=== PATIENT | male | born 1940 | race Asian ===

== ENCOUNTER 2024-11-27 09:25 | Outpatient (AMB) | payer MEDICARE, MEDICAID, SELFPAY ==
--- NOTE | 2024-11-27 09:27 | A.OFFPC_ITS ---
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 Request Intake Note: patient here for new patient visit c/o constipation Welding Systems And Equipment Repairer Required: Yes Welding Systems And Equipment Repairer Language: Polish Welding Systems And Equipment Repairer Name: RIMA Miller Information Interpreted: non-clinical & clinical Allergies No Known Allergies Allergy (Verified 11/27/24 09:51) Medication List - Last Reconciled 11/27/24 by Maira Almaraz CNP amlodipine 5 mg PO DAILY lisinopril 30 mg PO DAILY Tobacco use date assessed: 11/27/24 Fall risk assessment: No Falls in past year Last assessed Fall Risk: 11/27/24 Dental Screening Dental Screen Date: 11/27/24 Did you have a dental visit in the last 12 months?: Yes Did you have a dental problem in the last 6 months where you did not have access to dental care?: No Was dental information given to patient?: Patient has dentist HPI HPI Comments History of Present Illness Details 84-year-old Polish speaking male, accomp anied by his female friend, presents to establish care. He admits to taking his medications as prescribed without adverse reactions. Prior PCP? - [facility] Last office visit - 07/2024 Last /CPE/labs About a year ago Acute issue(s) - None Past Medical History - Hypertension, hyperlipidemia, hypothyr oidism, bradycardia, constipation, erectile dysfunction, sensorineural hearing loss, venous retinal branch occlusion (OD) Surgical History - None Family History - None Social History - Nonsmoker. Does not vape. Does not dri nk alcohol. Denies recreational drug use - Has been making healthy dietary choice s. Exercises routinely. Generally sleep well Health maintenance - Last eye exam was earlier this month [facility]. Encourged to sign a release for his PCP to obtain his ophthalmology record - Last dental visit was earlier this wed - Last tetanus vaccine was in 02/03/2023 per old record - He he is vaccinated for shingles or pn eumonia per old record - he notes that he his up-to-date on the flu vaccine - Last colonoscopy was about 10 years ag o: normal. 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 1. Little interest or pleasure in doing things: not at all 2. Feeling down, depressed, or hopeless: not at all 3. Trouble falling or staying asleep, or sleeping too much: not at all 4. Feeling tired or having little energy: not at all 5. Poor appetite or overeating: not at all 6. Feeling bad about yourself - or that you are a failure or have let yourself or your family down: not at all 7. Trouble concentrating on things, such as reading the newspaper or watching television: not at all 8. Moving or speaking so slowly that other people could have noticed. Or the opposite - being so fidgety or restless that you have been moving around a lot more than usual: not at all 9. Thoughts that you would be better off or of hurting yourself in some way: not at all Total score: 0 Depression Screening Interpretation: Negative Depression Screening Done: Yes 31483 - PHQ-9 Billing: Yes Source: Developed by Drs. Bowen Montoya, Melanie Wiggins, Pelon Chapa and colleagues, with an educational felipa from [employer]. Thrive Questionnaire Date Thrive assessed: 11/27/24 I am a: Patient What is your living situation today?: I have a steady place to live Within the past 12 months, did the food you bought not last and you didn't have the money to get more?: Never true Within the past 12 months, did you worry whether your food would run out before you got money to buy more?: Never true Do you have trouble paying for medicines?: No Do you have trouble getting transportation to medical appointments?: No Do you have trouble paying your heating and electricity bill?: No Do you have trouble taking care of your child, family member or friend?: No Do you have trouble with day-to-day activities such as bathing, preparing meals, shopping, managing finances, etc.?: No Are you currently unemployed and looking for a job?: No Are you interested in more education?: No Please select the resources that you would like help with: None Currently or been in a relationship where the following occur: No concerns reported THRIVE Score: 0 AUDIT C Alcohol Use Questionnaire (AUDIT-C) 1. How often do you have a drink containing alcohol?: Never 3. How often do you have six or more drinks on one occasion?: Never Total Score: 0 Score Reviewed/Action Taken: Yes OLIMPIA-7 AMB Questionnaire OLIMPIA-7 Date OLIMPIA - 7 assessed: 11/27/24 Feeling nervous, anxious, or on edge: 0 = Not at all Not being able to stop or control worryin = Not at all Worrying too much about different things: 0 = Not at all Trouble relaxin = Not at all Being so restless that it is hard to sit still: 0 = Not at all Becoming easily annoyed or irritable: 0 = Not at all Feeling afraid as if something awful might happen: 0 = Not at all Total OLIMPIA-7 score (0-4 normal; 5-9 mild; 10-14 moderate; 15-21 severe): 0 Source: Developed by Drs. Bowen Montoya, Melanie Wiggins, Pelon Chapa and colleagues, with an educational felipa from [employer]. OLIMPIA-7 Assessment Billing OLIMPIA-7 Assessment Tool: OLIMPIA-7 Assessment 52317 Review of Systems Const Details: Denies chills, Denies fatigue, Denies fever(s), Denies headache(s) and Denies weakness HEENT Denies change in vision, Denies dizziness, Denies headache(s), Denies hearing loss, Denies nasal congestion, Denies sinus pain, Denies sinus pressure and Denies sore throat Card Denies chest pain, Denies lightheadedness, Denies dyspnea and Denies other (palpitations) Resp Denies cough, Denies dyspnea and Denies wheezing GI Denies abdominal pain, Denies melena, Denies hematochezia, Denies change in bowel habits, Denies dyspepsia and Denies nausea Denies hematuria and Denies dysuria Musc Denies abnormal gait, Denies myalgias, Denies arthralgias, Denies numbness and Denies tingling Skin/Breast Denies rash, Denies unusual bruising and Denies wounds Neuro Denies abnormal gait, Denies dizziness, Denies headache(s), Denies memory loss, Denies numbness, Denies Sensory deficit (Neuro), Denies tingling and Denies weakness Psych Denies anxiety, Denies depression and Denies memory loss Endo Denies cold intolerance, Denies fatigue, Denies heat intolerance, Denies polydipsia and Denies polyuria Abhay/Lymph Denies easy bleeding and Denies easy bruising Aller/Immun Denies wheezing Physical exam (Primary Care) Vital Signs: Last Vital Signs Temp 97.8 F 11/27/24 09:46 Pulse 53 11/27/24 09:46 Resp 16 11/27/24 09:46 BP 132/60 11/27/24 09:46 Pulse Ox 100 11/27/24 09:46 Oxygen Delivery Method Room Air 11/27/24 09:46 BMI result Body Mass Index 23.6 Tobacco/Smoking Status: Tobacco use Status Tobacco use date assessed 11/27/24 11/27/24 09:45 Patient Tobacco Use Status Never used Tobacco 11/27/24 09:46 e-Cigarette/Vaping Use Never Used 11/27/24 09:46 PHQ-9: PHQ-9 Score PHQ-9: Total score 0 11/27/24 09:53 Depression Screening Interpretation: Negative Thrive Assessment: Date of Thrive Assessment Date Thrive assessed 11/27/24 11/27/24 09:56 Currently or been in a relationship where the following occur: No concerns reported Const Other: General: no acute distress, well developed, alert and awake Nutritional Appearance: well nourished Orientation/consciousness: patient oriented x3 HENMT Head: Yes normocephalic and Yes atraumatic Ears: hearing grossly normal bilaterally and TM's normal bilaterally General nose exam: Normal external nose present and Normal nares present Mouth: Normal oral and palatal mucosa present and moist mucous membranes Teeth and gingiva: dentition normal Throat: Yes oropharynx normal Eyes Pupils: Equal, round and reactive pupils present and Pupil accommodation reflex normal EOM: EOMs intact bilaterally Neck Neck: Yes normal visual inspection, Yes no lymphadenopathy and Yes trachea midline Thyroid: Thyroid normal Carotids: no bruits Lymphatic: no lymphadenopathy noted Chest Chest palpation & inspection: normal inspection of the chest Resp Effort & Inspection: normal respiratory effort Auscultation: clear to auscultation bilaterally Cardio Rate: regular rate Rhythm: regular rhythm Heart sounds: S1 normal heart sound present, S2 normal heart sound present, no gallops, no murmurs and no rubs Bruits: no abdominal aortic bruits and no carotid bruits GI Palpation (GI): No Abdominal aortic bruit present, Soft to palpation, nontender, No hepatosplenomegaly present and No Rebound tenderness present Auscultation: normal bowel sounds General: Yes no CVA tenderness Back/Spine/Pelvis Back: no CVA tenderness Cervical Spine: cervical ROM normal and No Cervical spine tenderness Thoracic/Lumbar Spine: thoraco-lumbar ROM normal, No pain with thoraco-lumbar ROM, No thoracic spinal tenderness and No lumbar spinal tenderness Skin General: warm and dry. Normal skin color. Normal skin turgor Lesions: no lesions Rashes: no rashes Trauma: no lacerations or abrasions Wounds: no wounds Nails: normal Neuro General: patient oriented x3, gait normal and CN's II-XI intact bilaterally Cranial nerves: Yes Equal, round and reactive pupils present Cognition (Neuro): normal cognition Gait exam (Neuro): Normal gait present Motor exam (neuro): 5/5 motor strength present throughout Sensory Exam: No Sensory deficit (Neuro) Deep tendon reflexes (DTR's): Right patellar reflex intensity grade: 2+ and Left patellar reflex intensity grade: 2+ Extrem General: Yes normal to inspection, No edema and No calf tenderness Psych Appearance: grossly normal Affect: normal affect Attitude: cooperative Thought process: Normal thought process present Coding Level of Care Code New Pt Prev Care >65yr (62124) Diagnoses Normal physical examination, routine Z00.00 Hypertension I10 Laboratory tests ordered as part of a complete physical exam (CPE) Z00.00 Additional Codes PHQ-9 - 95913 - PHQ-9 Billing: Yes ([id number]) OLIMPIA-7 Assessment Billing - OLIMPIA-7 Assessment Tool: OLIMPIA-7 Assessment 51765 ([id number]) Assessment & Plan Assessment & Plan (1) Normal physical examination, routine: Code(s): Z00.00 - Encounter for general adult medical examination without abnormal findings Category: Medical Plan: No functional limitation noted. Continue current treatment regimen. Healthy diet and routine exercise encouraged. Perform lab work and follow-up in 1 month for hypertension and labs reviewed. Return sooner with symptoms or concerns. Verbalized understanding and agreed with the plan. (2) Hypertension: Code(s): I10 - Essential (primary) hypertension Category: Medical Plan: Blood pressure today is 132/60, within goal of less than 140/90. Continue current treatment regimen. Low-sodium diet encouraged. Follow-up in 1 month Verbalized understanding and agreed with plan. (3) Laboratory tests ordered as part of a complete physical exam (CPE): Code(s): Z00.00 - Encounter for general adult medical examination without abnormal findings Category: Medical Plan: Fasting labs ordered as part of a complete physical exam. Advised to fast for at least 10 hours before getting labs drawn. May drink water Verbalized understanding and agreed with treatment plan. Orders: Orders Lipid Panel Today Z00.00 - Encounter for general adult medical examination without abnormal findings Microalbumin, Random (w Creat) Today Z00.00 - Encounter for general adult medical examination without abnormal findings PSA, Ultra Sensitive Today Z00.00 - Encounter for general adult medical examination without abnormal findings Complete Blood Count Auto Diff Today Z00.00 - Encounter for general adult medical examination without abnormal findings Comprehensive [place]. Panel Fast Today Z00.00 - Encounter for general adult medical examination without abnormal findings TSH reflex Free T4 Today Z00.00 - Encounter for general adult medical ex amination without abnormal findings UA CC w/rflx Micro + Cult Today Z00.00 - Encounter for general adult medical examination without abnormal findings Vitamin D 25-OH Total Today Z00.00 - Encounter for general adult medical examination without abnormal findings
[2024-11-27 09:46] VITALS: BP 132/60; PULSE 53; RESP 16; TEMP 36.6; O2SAT 100; BMI 23.6
--- OUTSIDE RECORDS SUMMARY | 2024-11-27 10:13 | XMS_ITS | Clinical Summary ---
Author Organization [facility] Address [address] [place] [id number] Phone Care Team Providers Care Skin Pass Operator Name Role Phone Americo Ayala MD Primary Care Provider Allergies No known active allergies Medications lisinopril (PRINIVIL,ZESTR IL) 5 MG tablet Orally daily A ctive Medication-Free Text multivitamin Active Active Problems Problem Noted Date Diagnosed Date SSS (sick sinus syndrome) 07/27/2017 Overview (07/27/2017): characterized as longstanding asymptomatic sinus bradycardia Assessment & Plan (07/27/2017 10:28 AM EDT): EKG today showing sinus bradycardia with a heart rate of 50 bpm with IVCD, and NSSTW. He is asymptomatic. --We will continue to monitor, he will follow-up in one year and we will transition care over to Dr. Del Cid --Patient will call with any symptoms, issues, or concerns Essential hypertension 07/27/2017 Assessment & Plan (07/27/2017 10:28 AM EDT): Blood pressure in the office today was 160/80 with repeat bp 160/66. Long-term management by PCP he is currently on lisinopril 5 mg by mouth daily. He tells me that he was recently seen by his primary care physician and and he did not adjust his medications. Recommend increase in his VIRAL inhibitor for better blood pressure control. He would rather discuss this with his primary care physician prior to taking any medications. --Avoid any medications that may influence his heart rate including beta blockers and see him antagonists. Social History Tobacco Use Types Packs/Day Years Used Date Smoking Tobacco: Former Smokeless Tobacco: Never Alcohol Use Standard Drinks/Week Comments No 0 (1 standard drink = 0.6 oz pur e alcohol) Education Answer Date Recorded Are you interested in more education? Not on dc e 08/28/2022 Are you concerned about learning? Not on file 08/28/2022 No 08/28/2022 No 08/28/2022 Digital Access Answer Date Recorded No 09/26/2022 No 09/26/2022 Reliable internet access at home? Not on file 09/26/2022 Device with a working camera? Not on file Sex and Gender Information Value Date Recorded Sex Assigned at Not on file Legal Sex Male 10:11 PM EDT Gender Identity Not on file Sexual Orientation Not on file Last Filed Vital Signs Vital Sign Reading Time Taken Comments Blood Pressure 180/82 07/25/2018 11:24 AM EDT Pulse 44 07/25/2018 11:24 AM EDT Temperature - - Respiratory Rate - - Oxygen Saturation 98% 07/25/2018 11:24 AM EDT Inhaled Oxygen Concentration - - Weight 64.5 kg (142 lb 1.6 oz) 07/25/2018 11:24 AM EDT Height 165.1 cm (5' 5 ) 07/27/2017 10:01 AM EDT Body Mass Index 23.65 07/27/2017 10:01 AM EDT Plan of Treatment Health Maintenance Due Date Last Done Comments BLOOD PRESSURE 1941 CREATININE LEVEL 1941 POTASSIUM LEVEL 1941 DEPRESSION SCREENING 1953 ZOSTER VACCINES (2 of 3) 01/18/2014 11/23/2013 RSV VACCINE (1 - 1-dose 75+ series) 2016 COVID-19 VACCINE (2023-2 5 season) 2024 07/09/2020, 06/17/2020 Adult Td,Tdap Booster 07/17/2026 07/17/2016 , 11/29/2007 PNEUMOCOCCAL VACCINES (50+ years) Completed 10/19/2014, 11/29/2007 HEPATITIS A VACCINES Aged Out No long er eligible based on patient's age to complete this topic HIB VACCINES Aged Out No longer eligi ble based on patient's age to complete this topic MENINGOCOCCAL VACCINES (ACWY) Aged Out No longer eligible based on patient's age to complete this topic MENINGOCOCCAL VACCINES (B) Aged Out N o longer eligible based on patient's age to complete this topic Medical Devices Not on file Insurance MEDICARE PART A & B [address] [place], [place] [address]HEALTH MEDICARE PART A & [facility]IC[facility] PART A & [place] [facility] [place] A & B HEALTH MEDICARE PART A & [place] A & [facility] Care Teams Skin Pass Operator Relationship Specialty Start Date End Date Americo Ayala MD [address] [place], [place] [id number] [place] [phone] PCP - General 02/18/17 Additional Source Comments The information contained in this document represents components of the legal health record. It is not the complete legal health record.[facility]
--- OUTSIDE RECORDS SUMMARY | 2024-11-27 10:13 | XMS_ITS | Data Portability ---
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 HIPPA Release form signed today. [email or web address] Not available 03/17/2021 12:09:07 Plan of Treatment Reminders Order Date Submit Date Provider Last Modified By Organization Details Last Modified Time Details Appointments None recorded. Lab None recorded. Referral senior materials planner referral - Right sensorineur al hearing loss. Please evaluate for audiogram. 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 ispilateral optic nerve has large cupping and optociliary shunt vessels. ? glaucoma vs. changes from old BRVO. Also small embolus in temporal retina OS. Cataracts OU. 2020 [email or web address] Not available 10:29:46 field education director referral 2020 [facility], [address] [place] [address], [phone], 11:55:04 Procedures None recorded. Surgeries None recorded. Imaging None recorded. Medication Orders lisinopril 20 mg tablet 2020 BRITTON Not available 11:26:07 hydrochloro thiazide 25 mg tablet 2020 BRITTON Not available 11:26:07 hydrochloro thiazide 25 mg tablet 2020 BRITTON Not available 10:46:52 senna 8.6 mg tablet 2020 BRITTON Not available 15:38:57 Patient TargetsNo targets recorded. Patient Instructions Encounter Date Encounter Id Patient Instructions Last Modified By Organization Details Last Modified Time 11/18/2020 [id number] After a discussi on of treatment options, which included consideration of best practices and patient preferences, the above treatment plan and objectives were adopted. New medication was discussed with patient including risks, benefits, possible and expected side effects. Patient understands and is willing to begin medication as prescribed. [email or web address] Not available 11/18/2020 21:17:24 12/16/2020 [id number] After a discussi on of treatment options, which included consideration of best practices and patient preferences, the above treatment plan and objectives were adopted. [email or web address] Not available 12/24/2020 19:05:54 03/05/2021 [id number] After a discussi on of treatment options, which included consideration of best practices and patient preferences, the above treatment plan and objectives were adopted. [email or web address] Not available 03/08/2021 17:35:27 03/17/2021 [id number] After a discussi on of treatment options, which included consideration of best practices and patient preferences, the above treatment plan and objectives were adopted. 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 ispilateral optic nerve has large cupping and optociliary shunt vessels. ? glaucoma vs. changes from old BRVO. Also small embolus in temporal retina OS. Cataracts OU. Referring Physician: Missy Asher, Optometry, Encounter Date: 01/03/2021 Fat Pressroom Worker Referral for Hea ring loss Right sensorineural hearing loss. Please evaluate for audiogram. Referring Physician: Americo Ayala [facility], Encounter Date: 03/05/2021 Problems Name Problem SNOMED Code Status Onset Date Resolution Date Notes Provider Name and Address Organization Details Recorded Time Essential hypertension 45344630 Active Americo Ayala MD [address] [place], [place] [address], [address], [facility] 5 20:11:43 Impotence Active Americo Ayala MD [address] [place], [place] [address], [address], [facility] 4 12:13:33 Bradycardia 90273298 Active 2015 Americo Ayala MD [address] [place], [place] [address], [address], [facility] 6 11:37:13 Venous retinal branch occlusion 99458746 Active 2018 Americo Ayala MD [address] [place], [place] [address], [address], [facility] 9 17:43:18 Problem Notes None recorded. Procedures Surgical History Date Name Laterality Status Provider Name and Address Organization Details Recorded Time 01/04/20 21 Fundus Photography completed Missy Asher, OD [address] [place] [address], [phone], [facility] 01/03/2021 19:19:03 01/04/20 21 Refraction completed Brenda Swift [facility] 01/02/2021 21:29:32 10/21/20 20 Telephonic Visit completed Buffy Esparza LPN [facility] 02/21/2020 12:03:18 03/06/20 19 Fundus Photography completed Missy Asher, OD [address] [place], [address], [facility] 03/06/2019 13:59:49 03/06/20 19 Refraction completed Missy Asher, OD [address] [place], [address], [facility] 03/06/2019 14:08:16 02/05/20 18 Medicare Wellness Visit completed Soniya Moyer [facility] 02/04/2018 09:16:55 03/02/20 17 Refraction completed Smiley Cordova [facility] 03/02/2017 08:56:04 07/18/19 17 Medicare Wellness Visit completed Roseline Mckeon [facility] 07/17/2016 10:02:28 02/26/20 16 Refraction completed Missy Asher, OD [address] [place], [address], [facility] 02/26/2016 14:32:32 04/29/20 15 Medicare Wellness Visit completed Montserrat Garcia [facility] 04/29/2015 14:39:20 04/23/20 14 Medicare Wellness Visit completed Dayanara Fishman [facility] 04/23/2014 11:14:32 Imaging Results None recorded. Procedure Notes None recorded. Medical Equipment None Reported. Allergies No known drug allergies Medications Name Sig Start Date Stop Date Status Note LastModified by Organization Details LastModified Time ibuprofen 800 mg tablet 08/10 completed Not Available Not Available Not Available clarithromy mateo 500 mg tablet Take 1 tablet every 12 hours by oral route for 14 days. 08/10 completed Not Available Not Available Not Available senna 8.6 mg tablet Take 2 tablets every day by oral route as needed. 2020 active Not Available Not Available Not Avai lable lisinopril 20 mg tablet Take 1 tablet every day by oral route. active Not Available Not Available No t Available triamcinolo ne acetonide 0.1 % topical cream APPLY A THIN LAYER TO THE AFFECTED AREA(S) BY TOPICAL ROUTE 2 TIMES PER DAY FOR 1 WEEK 02/04 completed Not Available Not Available Not Available amoxicillin 500 mg tablet Take 2 tablets twice a day by oral route for 14 days. 08/10 completed Not Available Not Available Not Available Zantac 150 mg tablet Take 1 tablet every day by oral route. 08/10 completed Not Available Not Available Not Available lisinopril 10 mg tablet Take 1 tablet every day by oral route. 02/15 completed Not Available Not Available Not Available lisinopril 30 mg tablet TAKE ONE TABLET BY MOUTH EVERY DAY active Not Available Not Available No t Available omeprazole 20 mg capsule,del ayed release TAKE ONE CAPSULE BY MOUTH TWICE DAILY 08/10 completed Not Available Not Available Not Available lisinopril 5 mg tablet TAKE 1 TABLET BY MOUTH EVERY DAY active Not Available Not Available No t Available hydrochloro thiazide 25 mg tablet Take 1 tablet every day by oral route. 2020 active Not Available Not Available Not Avai lable Viagra 100 mg tablet TAKE 1/4 TO 1/2 TABLET BY MOUTH 1 HOUR PRIOR TO SEXUAL INTERCOUR SE NEEDED. 02/23 completed Not Available Not Available Not Available lisinopril 2.5 mg tablet active Not Available Not Available Not Available metronidazo le 0.75 % topical gel APPLY A THIN LAYER TO THE AFFECTED AREA(S) BY TOPICAL ROUTE AT NIGHT (TO FACE) 03/17 completed Not Available Not Available Not Available doxycycline hyclate 100 mg tablet 02/01 completed Not Available Not Available Not Available Fluzone High-Dose 6438-3408 (PF) 180 mcg/0.5 mL intramuscul ar syringe active Not Available Not Available N ot Available Shingrix (PF) 50 mcg/0.5 mL intramuscul ar suspension, kit 02/01 completed Not Available Not Available Not Available Vitals Date Recorded Body height Body mass index (BMI) Body weight Systolic And Diastolic Provider Name and Address Organization Details Last Updated DateTime 11/18/2020 161.8 cm 24.6 kg/m2 14191.82 g 142/50 mm[Hg] Buffy Esparza LPN [facility] 11/18/2020 15:22:54 Date Recorded Body height Body mass index (BMI) Body weight Heart rate Systolic And Diastolic Provider Name and Address Organization Details Last Updated DateTime 12/16/2020 161.8 cm 24.5 kg/m2 50202.22 g 44 /min 134/58 mm[Hg] Barbara FELICE Kumar [facility] 12/16/2020 09:58:49 Date Recorded Body height Body mass index (BMI) Body weight Systolic And Diastolic Provider Name and Address Organization Details Last Updated DateTime 03/05/2021 161.8 cm 24.8 kg/m2 89620.41 g 172/62 mm[Hg] Buffy Esparza LPN [facility] 03/05/2021 10:02:37 Date Recorded Body height Body mass index (BMI) Body weight Systolic And Diastolic Provider Name and Address Organization Details Last Updated DateTime 03/17/2021 161.8 cm 24.5 kg/m2 84032.92 g 144/56 mm[Hg] Buffy Esparza [facility] 03/17/2021 11:00:37 Social History Question Answer Notes LastModified by Sanl[employer] Details LastModified Time Tobacco Smoking Status Never Smoker Barbara StacyFELICE [facility] 12/16/2020 09:56:59 How Much Tobacco Do You Chew? None [email or web address] Information not available 07/17/2016 How Many Days In The Past Year Have You Had A Heavy Drinking Consumption (4+ Female, 5+ Male)? 0 Information no t available 04/23/2014 Live Alone Or With Others? Alone Information not available 04/23/2014 Marital Status Single Informatio n not available 04/23/2014 What Was The Date Of Your Most Recent Tobacco Screening? 03/05/2021 [email or web address] Information not available 03/05/2021 How Many Children Do You Have? 2 Information not available 04/23/2014 Seat Belts Used Routinely Yes Information not available 04/23/2014 Are You Sexually Active? Yes Information not available 04/23/2014 Sex: Unknown Functional Status Question Answer Note LastModified by Organizat ion Details LastModified Time Do you use any illicit or recreational drugs? No blepage Information not available 12/16/2020 What is your level of alcohol consumption? None [email or web address] Information not available 03/02/2014 Do you or have you ever used smokeless tobacco? Never used smokeless tobacco [email or web address] Information not available 02/21/2020 Do you or have you ever used e-cigarettes or vape? Never used electronic cigarettes [email or web address] Information not available 02/21/2020 Mental Status None recorded. Family History Relationship Description Onset Age of this Age Resolved Age Notes LastModified by Organization Details LastModified Time Sister Malignant tumor of stomach 60 fkim Not available 2013 11:38:36 Medical History No medical history recorded. Immunizations Vaccine Type Date Status Note Provider Nam e and Address Organization Details Recorded Time Influenza, high-dose, trivalent, PF 4 completed Not Available [facility] 05/20/2019 02:19:19 Pneumococcal conjugate PCV 13 5 completed Not Available [facility] 05/20/2019 02:19:27 Influenza, high-dose, trivalent, PF 5 completed Not Available [facility] 05/20/2019 02:25:04 Influenza, high-dose, trivalent, PF 6 completed Not Available [facility] 05/20/2019 02:20:42 Td (adult), 2 Lf tetanus toxoid, preservative free, adsorbed 7 completed Not Available [facility] 05/20/2019 02:38:50 Influenza, high-dose, trivalent, PF 7 completed Not Available [facility] 05/20/2019 02:22:00 zoster live 4 completed FELICE Gonzalez [facility] 06/13/2014 11:10:03 Td (adult) 8 completed FELICE Gonzalez [facility] 06/13/2014 11:10:03 pneumococcal polysaccharide PPV23 8 completed FELICE Gonzalez [facility] 06/13/2014 11:10:03 Influenza, high-dose, trivalent, PF 8 completed Not Available [facility] 05/20/2019 02:29:52 Influenza, high-dose, trivalent, PF 9 completed Not Available [facility] 05/20/2019 02:24:02 Influenza, high-dose, quadrivalent, PF 1 [facility] 10:11:31 Influenza, split virus, quadrivalent, preservative 0 completed Americo Ayala MD [address] [place], [address], [facility] 02/24/2020 09:23:37 SARS-COV-2 (COVID-19) vaccine, UNSPECIFIED 1 completed Americo Ayala MD [address] [place], [address], [facility] 11/18/2020 15:39:47 SARS-COV-2 (COVID-19) vaccine, UNSPECIFIED 1 completed Americo Ayala MD [address] [place] [address], [address], [facility] 11/18/2020 15:39:55 zoster recombinant 9 completed MELANY Hanley, [facility] 03/10/2021 08:26:36 zoster recombinant 9 completed MELANY Hanley, [facility] 03/10/2021 08:26:59 Past Encounters Encounter ID Performer Location Encounter Start Date Encounter Closed Date Diagnosis/Indication Diagnosis SNOMED-CT Code Diagnosis ICD10 Code Diagnosis Note [id number] Americo Ayala MD , [facility], [address] [place] [address] 03/02/2014 14:47:12 03/02/2014 16:56:27 Essential hypertension 71790510 BP optimal. Continue with current medication and low salt diet. EKG without evidence of ischemia. Impotence 576164927 Safe sex discussed. Benefits and potential adverse effects of the medication discussed. Influenza vaccine needed [id number] 106 Bradycardia 18044220 Pat ient with bradycardi a. Distant history of dizziness, but no current dizziness or lightheade dness. Advised to monitor for any new symptoms. Discussed about potential adverse effects of Viagra. [id number] Americo Ayala MD , [facility], [address] [place] [address] 04/23/2014 09:46:54 04/23/2014 11:44:14 Adult health examination 789564598 See Risk Assessment and Lifestyle Change Counseling section above. Signed a release from [facility] ([facility]). Colonoscop y UTD 2-3 years ago. Was informed normal. Influenza vaccine UTD. Believes all other vaccines are UTD. Records requested. Home/vehic le/sexual safety reviewed. Counseling [id number] Bradycardia 70626107 Pat ient with bradycardi a. Distant history of dizziness, but no current dizziness or lightheade dness. Advised to monitor for any new symptoms. Discussed about potential adverse effects of Viagra. Essential hypertension 14247714 BP elevated today, but within normal at his last visit and at home. Advised to bring in his home machine for calibratio n. Continue with current medication and low salt diet. Previous EKG without evidence of ischemia. [id number] Americo Ayala MD , [facility], [address] [place] [address] 10/19/2014 09:40:05 10/19/2014 10:08:52 Benign essential hypertension 7711537 Blood pressure at goal. Home BP 130/70. Advised to bring in his home machine for calibratio n. Continue with current medication and low salt diet. Previous EKG without evidence of ischemia. Bradycardia 24170029 Pat ient with bradycardi a. Distant history of dizziness, but no current dizziness or lightheade dness. Advised to monitor for any new symptoms. Discussed about potential adverse effects of Viagra. Contact dermatitis 64426728 Suspect poison tanja. Small confluence of erythemato us papules on his right medial knee. Will treat with a topical cream. Active or passive immunization 850229934 [id number] Wyatt Ramirez MD , [facility], [address] [place] [address] 03/06/2015 07:03:42 03/06/2015 16:10:57 Active or passive immunization 698153179 Z23 [id number] Americo Ayala MD , [facility], [address] [place] [address] 04/29/2015 14:33:31 04/29/2015 15:28:14 Adult health examination 207525800 Z00.00 See Risk Assessment and Lifestyle Change Counseling section above. Signed a release from [facility] ([facility]). Colonoscop y UTD 4 years ago. Was informed normal. Influenza vaccine UTD. Believes all other vaccines are UTD. Records requested. Home/vehic le/sexual safety reviewed. Counseling 175582132 Z71 .9 Essential hypertension 85544252 I10 BP within normal today. Continue with current medication and low salt diet. Previous EKG without evidence of ischemia. [id number] Americo Ayala MD , [facility], [address] [place] [address] 01/10/2016 11:05:05 01/10/2016 11:47:17 Essential hypertension 92414190 I10 Reports home BP within normal. Continue with Lisinopril and low salt diet. Active or passive immunization 592185829 Z23 Bradycardia 08992076 R00 .1 Patient with bradycardi a. Denies CP/SOB. Recently started with occasional dizziness and nausea (once or twice a year). Never had syncope or MS change. Will refer to Cardiology for further evaluation . Advised to monitor for any new symptoms. Discussed about potential adverse effects of Viagra (advised to hold off Viagra until seen by Cardiology ). [id number] Americo Ayala MD , [facility], [address] [place] [address] 02/24/2016 11:34:17 02/24/2016 14:23:53 Visual impairment 195995026 H54.7 Patient with decreased visual acuity on his left side since 2 weeks ago. Reports acute onset. Denies eye pain or itching. Underlying HTN, but BP well controlled . Also with bradycardi a, currently non-sympto matic. Will set up an appointmen t with Optometry today for further evaluation . Essential hypertension 32699932 I10 Reports home BP within normal. Continue with Lisinopril and low salt diet. Bradycardia 77486543 R00 .1 Patient with bradycardi a. Denies CP/SOB. Never had syncope or MS change. Evaluated by Cardiology . No current indication for pacemaker. Discussed about potential adverse effects of Viagra (advised to discontinu e). [id number] Missy Asher OD [facility], [facility] [address] [place] [address] 02/24/2016 14:24:04 02/24/2016 16:08:20 Internal hordeolum 282693700 H00.025 c/w discharge 2 weeks ago. non-tender , pt ed, recommend hot compress 10 min 4 x day for 1 week or until resolves. rtc if gets pain, worsening vision, or swelling. 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 c/w blurry vision. pt ed on cataracts. recommend coming back for refraction before deciding if needs cataract surgery consult. pt okay with this plan. [id number] Missy Asher, OD [facility], [facility] [address] [place] [address] 02/26/2016 11:22:45 02/26/2016 12:38:12 Presbyopia 78206373 H52.4 [id number] Americo Ayala MD , [facility], [address] [place] [address] 07/17/2016 09:55:09 07/17/2016 10:37:04 Adult health examination 472105045 Z00.00 See Risk Assessment and Lifestyle Change Counseling section above. Colonoscop y UTD. Influenza vaccine UTD. Will administer Td vaccine today. Home/vehic le/sexual safety reviewed. Counseling 165376335 Z71 .9 Essential hypertension 24709400 I10 Reports home BP within normal. Continue with Lisinopril and low salt diet. Bradycardia 42773135 R00 .1 Patient with bradycardi a. Denies CP/SOB. Never had syncope or MS change. Evaluated by Dr. Malave (Cardiolog y). Diagnosed with asymptomat ic sick sinus syndrome. No pacemaker indicated at this time. TSH within normal. Will monitor clinically . Avoiding PDE-5 inhibitor. Advised to monitor for any new symptoms. Active or passive immunization 921633781 Z23 [id number] Americo Ayala MD , [facility], [address] [place] [address] 01/18/2017 10:29:25 01/18/2017 11:00:25 Essential hypertension 85122093 I10 Reports home BP within normal. Continue with Lisinopril and low salt diet. Bradycardia 08847856 R00 .1 Patient with bradycardi a. Denies CP/SOB. Never had syncope or MS change. Evaluated by Dr. Malave (Cardiolog y). Diagnosed with asymptomat ic sick sinus syndrome. No pacemaker indicated at this time. TSH within normal. Will monitor clinically . Avoiding PDE-5 inhibitor. Advised to monitor for any new symptoms. Active or passive immunization 810606165 Z23 [id number] Missy Asher, OD [facility], [facility] [address] [place] [address] 03/02/2017 08:27:49 03/02/2017 09:37:04 Cortical senile cataract 41810150 H25.013 mild to moderate OU. pt ed, not visually significan t. monitor 1 yr CEE or prn. Presbyopia 06514339 H52. 4 Rx fairly stable, no need to change glasses. [id number] Americo Ayala MD FP, [facility], [address] [place] [address] 02/04/2018 09:04:55 02/04/2018 09:46:35 Adult health examination 797753337 Z00.00 See Risk Assessment and Lifestyle Change Counseling section above. Colonoscop y UTD. Influenza vaccine administer ed today. Td vaccine UTD. Home/vehic le/sexual safety reviewed. Counseling 152379789 Z71 .9 Depression screening 171 058241 Z13.89 depression screening tool administer ed, entered into emr, scored and discussed, time greater than 7.5 minutes Essential hypertension 75511324 I10 Reports home BP within normal. Continue with Lisinopril and low salt diet. Bradycardia 94363789 R00 .1 Patient with bradycardi a. Denies CP/SOB. Never had syncope or MS change. Evaluated by Dr. Malave (Cardiolog y). Diagnosed with asymptomat ic sick sinus syndrome. No pacemaker indicated at this time. TSH within normal. Will monitor clinically . Avoiding PDE-5 inhibitor. Advised to monitor for any new symptoms. Rosacea 229661074 L71.9 Involving bilateral cheeks, nose and forehead. Discussed about trial of Metronidaz ole gel. Advised to contact if no improvemen t. Gastritis 6560917 K29.70 Long history of intermitte nt gastritis symptoms. Denies BRBPR or melena. Frequent use of Zantac OTC. Will prescribe. From [place]. Will check Stool H. pylori Ag. Will do triple therapy if positive. Understand s the plan. Active or passive immunization 526613835 Z23 [id number] Missy Asher, OD [facility], [facility] [address] [place] [address] 03/03/2018 08:28:24 03/03/2018 09:39:10 Cortical senile cataract 05063685 H25.013 mild OU. pt ed, not visually significan t. monitor 1 yr CEE or prn. Presbyopia 61476681 H52. 4 continue with current glasses. copy of rx given. [id number] Americo Ayala MD , [facility], [address] [place] [address] 08/10/2018 14:39:34 08/11/2018 08:58:49 Essential hypertension 53841480 I10 Reports home BP within normal. Continue with Lisinopril and low salt diet. Bradycardia 57526643 R00 .1 Patient with bradycardi a. Denies CP/SOB. Never had syncope or MS change. Evaluated by Dr. Malave (Cardiolog y). Diagnosed with asymptomat ic sick sinus syndrome. No pacemaker indicated at this time. TSH within normal. Will monitor clinically . Avoiding PDE-5 inhibitor. Advised to monitor for any new symptoms. Rosacea 482283083 L71.9 Involving bilateral cheeks, nose and forehead. Discussed about trial of Metronidaz ole gel. Advised to contact if no improvemen t. Gastritis 4411166 K29.70 Long history of intermitte nt gastritis symptoms. Denies BRBPR or melena. Frequent use of Zantac OTC. Previously found to have H. pylori Ag. Marked improvemen t after the triple therapy. Active or passive immunization 494836721 Z23 [id number] Missy Asher, [facility], [facility] [address] [place] [address] 03/06/2019 11:03:51 03/06/2019 13:07:31 Cortical senile cataract 13308708 H25.013 mild OU. pt ed, not visually significan t. monitor 1 yr CEE or prn. Presbyopia [id number] H52. 4 copy of glasses rx given to patient. Venous ret inal branch occlusion 27690985 H34.8322 new BRVO without macular edema. PCP, Dr. Ayala, aware of findings. BP taken by nurse Hazle today was 170/76 on the left arm. I spoke to Dr. Ayala today. He will follow-up with the patient. I also referred to patient to see the retina specialist within a couple of weeks. [id number] Americo Ayala MD , [facility], [address] [place] [address] 03/17/2019 11:11:41 03/17/2019 11:59:51 Active or passive immunization [id number] Z23 Essential hypertension 49749347 I10 Recently had elevated BP. No change in treatment. BP within normal currently. Continue with Lisinopril and low salt diet. Bradycardia 47067049 R00 .1 Patient with bradycardi a. Denies CP/SOB. Never had syncope or MS change. Evaluated by Dr. Malave (Cardiolog y). Diagnosed with asymptomat ic sick sinus syndrome. No pacemaker indicated at this time. TSH within normal. Will monitor clinically . Avoiding PDE-5 inhibitor. Advised to monitor for any new symptoms. Rosacea [id number] L71.9 Involving bilateral cheeks, nose and forehead. Continue with Metronidaz ole gel. Gastritis 9281823 K29.70 Long history of intermitte nt gastritis symptoms. Denies BRBPR or melena. Frequent use of Zantac OTC. Previously found to have H. pylori Ag. Marked improvemen t after the triple therapy. 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 BP at the visit 176/70. Now better. No change in vision. Just saw Dr. Liu at [facility] yesterday. No issues with vision. Recommende d monitoring without interventi on. [id number] MD SONYA Vasquez, [facility], [address] [place] [address] 01/22/2020 11:49:03 01/23/2020 09:27:45 Essential hypertension 45734852 I10 Borderline elevated home BP 140-145/70 . Will further increase Lisinopril dose to 10mg daily. Monitor BP at home. Continue with lifestyle modificati on with low salt diet and exercise. Hearing loss 97750355 H9 1.91 Brief loss of right ear hearing and tinnitus 2-3 days. Now back at his baseline. Previously had similar symptoms with negative work up by ENT. Discussed audiologic evaluation if recurs. Follow up in 6 month. [id number] Americo Ayala MD , [facility], [address] [place] [address] 02/02/2020 08:11:29 02/05/2020 10:37:12 Essential hypertension 61443734 I10 Previously had borderline elevated BP. Increased Lisinopril dose to 10mg daily 10 days ago. States today's BP 130/70. Monitor BP at home. Continue with lifestyle modificati on with low salt diet and exercise. Will follow up VV in 1 month Bradycardia 96808481 R00 .1 Patient with underlying bradycardi a. Denies CP/SOB. Never had syncope or MS change. Evaluated by Dr. Malave (Cardiolog y). Diagnosed with asymptomat ic sick sinus syndrome. No pacemaker indicated at this time. TSH within normal previously . Will monitor clinically . Avoiding PDE-5 inhibitor. Advised to monitor for any new symptoms. Dizziness [id number] R42 Recent ER visit. Symptoms getting better. No URI symptoms. Informed possible link to his underlying bradycardi a. Advised on ample hydration. Advised to contact the clinic if persistent symptoms. [id number] Americo Ayala MD , [facility], [address] [place] [address] 02/21/2020 12:00:41 02/23/2020 10:03:46 Essential hypertension 15799473 I10 Follow up after [facility] ER visit due elevated BP and dizziness. Labs overall unremarkab le. BP in the ER was 180/70-80. Recently increased Lisinopril dose and added HCTZ. Reports home BP better now at 135/60 and 100/64 (with HR 50-60), but has had labile BP. Previously scheduled for an in-person visit this Wednesday. Intends to keep the appointmen t to check BP and compare with his home machine. Spoke to patient. No LOTT or CP. Will also get his Flu vaccine at the visit. Continue with lifestyle modificati on with low salt diet and exercise. Continue with HCTZ 25mg and Lisinopril 20mg daily. [id number] Americo Ayala MD , [facility], [address] [place] [address] 02/23/2020 14:16:41 02/27/2020 15:59:40 Essential hypertension 75745601 I10 Follow up after [facility] ER visit due elevated BP and dizziness. Labs overall unremarkab le. BP in the ER was 180/70-80. Recently increased Lisinopril dose and added HCTZ. Reports home BP better now at 135/60 and 100/64 (with HR 50-60), but has had labile BP. No LOTT or CP. Today's BP by this provider were 122/58 and 122/56. However, his [employer] BP machine measured 148/80 & 150/71 at the same time. Will schedule another in-person visit in 3-4 months per request. Advised to contact the [facility] for his just purchased BP machine. Continue with lifestyle modificati on with low salt diet and exercise. Continue with HCTZ 25mg and Lisinopril 20mg daily. [id number] Americo Ayala MD , [facility], [address] [place] [address] 05/10/2020 14:50:16 05/13/2020 08:56:39 Essential hypertension 81961072 I10 Follow up after [facility] ER visit due elevated BP and dizziness. Labs overall unremarkab le. BP in the ER was 180/70-80. Recently increased Lisinopril dose and added HCTZ. Reports home BP better now at 135/60 and 100/64 (with HR 50-60). No LOTT or CP. Continue with lifestyle modificati on with low salt diet and exercise. Continue with HCTZ 25mg and Lisinopril 20mg daily. Benign ess ential hypertension 1395830 I10 [id number] Americo Ayala MD , [facility], [address] [place] [address] 11/18/2020 15:05:36 11/18/2020 15:44:20 Constipation 88675122 K59.00 Unclear if developing constipati on is associated with HTN medication . No clinical evidence of acute abdomen. Recommende d to use fiber on daily basis. Will also prescribe Senna prn. Indication s for UC/ER use reviewed. Advised to contact the clinic if no improvemen t. Benign ess ential hypertension 2686912 I10 Recommend to resume Lisinopril 20mg daily. Previously was on HCTZ, but self discontinu ed. Continue to monitor BP at home. Follow up in 3-4 weeks for re-evaluat ion. [id number] Americo Ayala MD , [facility], [address] [place] [address] 12/16/2020 09:52:04 12/16/2020 10:17:19 Constipation 46511446 K59.00 Hard stool every 2-3 days. No clinical evidence of acute abdomen. Senna and prune juice helpful, but no longer effective. Consuming signficant fiber. Discussed OTC Miralax prn. Had normal colonoscop y 04/2015. Recommende d to repeat in 10 years. Advised to contact the clinic if not better in 2 weeks. Indication s for UC/ER use reviewed. Follow up in 3 months as scheduled. Reduced visual acuity 13 165266 H54.7 Benign ess ential hypertension 5942411 I10 Recommend to continue Lisinopril 20mg daily. Previously was on HCTZ, but self discontinu ed. Continue to monitor BP at home. Given low HR, will keep at this borderline BP range for adequate double product. Bradycardia 70288396 R00 .1 Patient with underlying bradycardi a. Denies CP/SOB. Never had syncope or MS change. Evaluated by Dr. Malave (Cardiolog y). Diagnosed with asymptomat ic sick sinus syndrome. No pacemaker indicated at this time. TSH within normal previously . Will monitor clinically . Avoiding PDE-5 inhibitor. Advised to monitor for any new symptoms. [id number] Missy Asher, [facility], [address] [address] 01/03/2021 13:35:23 01/07/2021 10:29:46 Presbyopia 92199333 H52.4 copy of glasses rx given to patient. Cortical s enile cataract 50121358 H25.013 mild OU. pt ed, not visually significan t. monitor 1 yr CEE or prn. 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 History of branch retinal vein occlusion 886443227 Z86.718 now with old hemes and exudates inferior arcade OS. no apparent macular edema today. 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 referred to ophthalmol ogist. [facility] in [facility]. 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 Previously had similar episode, but regained hearing about 2-3 days. Had negative work up previously by ENT. Discussed audiologic evaluation . Patient with decreased AC/BC on the right side, suggesting SNHL. Audiology referral submitted at [facility]. Constipation 08948636 K5 9.00 Previously reported constipati on without evidence of acute abdomen. Improved with OTC Miralax prn. Had normal colonoscop y 04/2015. Recommende d to repeat in 10 years. Advised to contact the clinic if recurring symptoms. Indication s for UC/ER use reviewed. Benign ess ential hypertension 2063409 I10 Recommend to continue Lisinopril 20mg daily. Previously was on HCTZ, but self discontinu ed. Now with elevated BP. Advised to also restart HCTZ 25mg daily. Continue to monitor BP at home. Given low HR, will keep at this borderline BP range for adequate double product control. Previously had [facility] ER visit due elevated BP and dizziness. Labs overall unremarkab le. BP in the ER was 180/70-80. No LOTT or CP. Continue with lifestyle modificati on with low salt diet and exercise. Continue with HCTZ 25mg and Lisinopril 20mg daily. Bradycardia 09188400 R00 .1 Patient with underlying bradycardi a. Denies CP/SOB. Never had syncope or MS change. Evaluated by Dr. Malave (Cardiolog y). Diagnosed with asymptomat ic sick sinus syndrome. No pacemaker indicated at this time. TSH within normal previously . Will monitor clinically . Avoiding PDE-5 inhibitor. Advised to monitor for any new symptoms. [id number] Americo Ayala MD , [facility], [address] [place] [address] 03/17/2021 10:42:48 03/23/2021 16:46:25 Hearing loss 90485422 H91.91 Recurrent loss of right ear hearing and tinnitus. Previously had similar episode, but regained hearing about 2-3 days. Had negative work up previously by ENT. Discussed audiologic evaluation . Patient with decreased AC/BC on the right side, suggesting SNHL. Audiology referral submitted at [facility]. Constipation 30902170 K5 9.00 Previously reported constipati on without evidence of acute abdomen. Improved with OTC Miralax prn. Had normal colonoscop y 04/2015. Recommende d to repeat in 10 years. Advised to contact the clinic if recurring symptoms. Indication s for UC/ER use reviewed. Benign ess ential hypertension 2134025 I10 Recommend to continue Lisinopril 20mg daily and HCTZ 25mg daily (previousl y self discontinu ed HCTZ). No intoleranc e issues. Home BP is better. Also with underlying bradycardi a (evaluated by Cardiology ; no pacer recommende d at this time). Previously had [facility] ER visit due elevated BP and dizziness. Labs overall unremarkab le. BP in the ER was 180/70-80. No LOTT or CP. Continue with lifestyle modificati on with low salt diet and exercise. Bradycardia 31050634 R00 .1 Patient with underlying bradycardi a. Denies CP/SOB. Never had syncope or MS change. Evaluated by Dr. Malave (Cardiolog y). Diagnosed with asymptomat ic sick sinus syndrome. No pacemaker indicated at this time. TSH within normal previously . Will monitor clinically . Avoiding PDE-5 inhibitor. Advised to monitor for any new symptoms. Health Concerns Section Related Observation LastModified by Organization Detai ls LastModified Time None Recorded Concern Status LastModified by Organization Details LastModified Time None Recorded Advance Directives Directive None Recorded Payers Insurance Date Sequence Insurance Name Policy Number Policy Rosenberg Covered Member ID Rosenberg Member ID Guarantor Name 03/17/2019 1 [place] [employer] Alex Ayala [id number] Alex Ayala 03/23/2017 2 [place]ID[place] [id number] Alex Ayala 12/09/2022 1 [place] [employer] Alex Ayala [id number] Alex Ayala 06/24/2021 2 [place] [facility] Alex Ayala [id number] Alex Ayala
== END 2024-11-27 10:30 | disposition home or self-care (01) ==
PROVIDERS: PCP Nurse Practitioner Family; Visit Provider Nurse Practitioner Family
DX: Z00.00 Encounter for general adult medical examination without abnormal findings (principal); I10 Essential (primary) hypertension

== ENCOUNTER → 2024-11-27 09:25 | Outpatient (BNVA) | payer MEDICARE, SELFPAY | PROVIDERS: PCP Nurse Practitioner Family; Visit Provider Nurse Practitioner Family | DX: Z00.00 Encounter for general adult medical examination without abnormal findings (principal); I10 Essential (primary) hypertension | CPT/HCPCS: 96127; 99387 ==

== ENCOUNTER 2024-12-18 07:53 | Outpatient (REF) | payer MEDICARE, MEDICAID, SELFPAY ==
--- OUTSIDE RECORDS SUMMARY | 2024-12-18 07:55 | XMS_ITS | Clinical Summary ---
Author Organization [facility] Address [address] [place] [address] Phone Care Team Providers Care Consumer Educator Name Role Phone Americo Ayala MD Primary Care Provider [phone] Allergies No known active allergies Medications lisinopril [...] file Insurance MEDICARE PART A & B [address] [place], [place] [address]HEALTH MEDICARE PART A & [facility] MEDICARE PART A & B [place] [facility] [facility] & [facility] [place] MED[place] & B [place] MEDICARE PART [place] & [place] & [facility] Care Teams Consumer Educator Relationship Specialty Start Date End Date Americo Ayala MD [address] [place], [place] [address] [place] [phone] [email or web address] PCP - General 02/18/17 Additional Source Comments The information contained in this document represents components of the legal health record. It is not the complete legal health record.[facility]
[2024-12-18 11:12] LABS: MANUAL DIFF FLAG NO
[2024-12-18 11:23] LABS: Hematocrit 41.6 % (42.0-52.0); Hemoglobin 14.1 g/dl (14.0-18.0); Imm Gran Abs Auto 0.02 X10*3/uL (0.00-0.03); Imm Gran Pct Auto 0.4 % (0.0-0.4); Lymphocytes Absolute Auto 1.6 X10*3/uL (1.2-4.9); Mean Corpuscular HGB Conc 33.9 g/dl (31.0-36.0); Mean Corpuscular Hemoglobin 32.4 pg (27.0-33.0); Mean Corpuscular Volume 95.6 fL (80.0-98.0); NRBC Abs Auto 0.000 X10*3/uL (0.0-0.012); NRBC Pct Auto 0.0 /100WBC (0.0-0.2); Platelet Count 199 X10*3/uL (160-400); Red Blood Count 4.35 X10*6/uL (4.60-5.80); White Blood Count 4.9 X10*3/uL (4.8-10.8)
[2024-12-18 11:34] LABS: Appearance Urine Clear; Glucose Urine UA Negative (Negative); PH 8.5 (5.0-9.0); Specific Gravity - Urine 1.015 (1.005-1.025); UMIC TRIGGER UACC YES
[2024-12-18 11:59] LABS: Alanine Aminotransferase 18 U/L (0-40); Albumin Level 4.0 g/dL (3.5-5.0); Alkaline Phosphatase 57 U/L (39-117); Anion Gap 10 (12-20); Aspartate Amino Transferase 34 U/L (5-37); Blood Urea Nitrogen 17 mg/dL (9-16); Calcium 9.1 mg/dL (8.4-10.2); Carbon Dioxide 29 mmol/L (22-29); Chloride 108 mmol/L (96-108); Cholesterol 182 mg/dL (<200); Estimated Glomerular Filt Rate > 60; HDL Cholesterol 50 mg/dL (>40); Potassium 4.6 mmol/L (3.3-5.1); Sodium 142 mmol/L (135-145); Total Protein 6.8 g/dL (6.5-8.0); Triglycerides 105 mg/dL (<150)
[2024-12-18 12:15] LABS: Microalbum/Creatinine Ratio Ur 6.9 ug/mg cr (<30)
[2024-12-22 00:17] LABS: PSA, Ultra Sensitive 5.41 ng/mL
== END 2024-12-18 07:54 | disposition home or self-care (01) ==
LOC: HO.WFDLDS 07:53
PROVIDERS: Visit Provider Nurse Practitioner Family
DX: Z00.00 Encounter for general adult medical examination without abnormal findings (principal); Z12.5 Encounter for screening for malignant neoplasm of prostate; Z13.0 Encounter for screening for diseases of the blood and blood-forming organs and certain disorders involving the immune mechanism; Z13.6 Encounter for screening for cardiovascular disorders; Z13.29 Encounter for screening for other suspected endocrine disorder
CPT/HCPCS: 36415; 80053; 80061; 81001; 82043; 82306; 82570; 84153; 84443; 85025

== ENCOUNTER 2025-01-26 09:28 | Outpatient (AMB) | payer MEDICARE, MEDICAID, SELFPAY ==
--- NOTE | 2025-01-26 09:35 | MHC.PC.OV ---
Vital Signs 01/26/25 09:47 Height 5 ft 4.57 in Weight 139 lb 2 oz BMI 23.5 BP 135/61 Blood Pressure Location Rt brachial Position Sitting Respiration 16 Pulse 52 Pulse Source Pulse Oximeter Temp 97.5 F Temp Source Oral Pulse Oximetry (%) 100 Oxygen Delivery Method Room Air Intake Visit Reasons: 1 mos HTN, labs review Intake Note: patient here for 1 month follow up on HTN and lab review Manufacturing Test Engineer Required: Yes Manufacturing Test Engineer Language: Urdu Manufacturing Test Engineer Name: paul grayson [id number] Information Interpreted: non-clinical & clinical Allergies No Known Allergies Allergy (Verified 01/26/25 10:10) Medication List - Last Reconciled 01/26/25 by Maira Almaraz CNP amlodipine 5 mg PO DAILY lisinopril 30 mg PO DAILY 30 days Tobacco use date assessed: 01/26/25 Fall risk assessment: No Falls in past year Last assessed Fall Risk: 01/26/25 Dental Screening Dental Screen Date: 01/26/25 Did you have a dental visit in the last 12 months?: No Did you have a dental problem in the last 6 months where you did not have access to dental care?: No Was dental information given to patient?: Yes HPI HPI Comments History of Present Illness Details 84-year-old Urdu speaking male, male presents for hypertension and recent labs review follow-up. He admits to taking his medications as prescribed without adverse reactions. He notes that he has been making healthy lifestyle changes. He offers no complaints and denies acute symptoms at this time. Interpretation by a professional Urdu speaking handle finisher via electronic tablet. [facility] Family History Brother Alcohol abuse Other Substance abuse Social History (Updated 11/27/24 @ 09:46 by Alanna Monson MA) Housing: House Patient Tobacco Use Status: Never used Tobacco e-Cigarette/Vaping Use: Never Used Second Hand Smoke Exposure: No service: No Current occupational status: retired Current occupational exposures/hazards: No Cognitive needs: No Hearing needs: No Vision needs: Yes Questionnaire Thrive Questionnaire Date Thrive assessed: 11/27/24 OLIMPIA-7 AMB Questionnaire OLIMPIA-7 Date OLIMPIA - 7 assessed: 11/27/24 Source: Developed by Drs. Bowen Montoya, Melanie Wiggins, Pelon Chapa and colleagues, with an educational felipa from [employer]. Review of Systems Const Details: Const Denies chills, Denies fatigue, Denies fever(s), Denies headache(s) and Denies weakness ENT Denies dizziness and Denies headache(s) Card Denies chest pain, Denies lightheadedness, Denies dyspnea and Denies other (Palpitations) Resp Denies cough, Denies dyspnea, Denies wheezing and Denies other ( shortness of breath) GI Denies abdominal pain, Denies melena, Denies hematochezia, Denies change in bowel habits, Denies dyspepsia and Denies nausea Denies hematuria and Denies dysuria Musc Denies abnormal gait, Denies myalgias, Denies arthralgias, Denies numbness and Denies tingling Skin/Breast Denies rash, Denies unusual bruising and Denies wounds Neuro Denies abnormal gait, Denies dizziness, Denies headache(s), Denies memory loss, Denies numbness, Denies Sensory deficit (Neuro), Denies tingling and Denies weakness Psych Denies anxiety, Denies depression, Denies memory loss Endo Denies cold intolerance, Denies fatigue, Denies heat intolerance, Denies polydipsia and Denies polyuria Aller/Immun Denies wheezing Physical exam (Primary Care) Vital Signs: Last Vital Signs Temp 97.5 F 01/26/25 09:47 Pulse 52 01/26/25 09:47 Resp 16 01/26/25 09:47 BP 135/61 01/26/25 09:47 Pulse Ox 100 01/26/25 09:47 Oxygen Delivery Method Room Air 01/26/25 09:47 BMI result Body Mass Index 23.5 Tobacco/Smoking Status: Tobacco use Status Tobacco use date assessed 01/26/25 01/26/25 09:53 Patient Tobacco Use Status Never used Tobacco 01/26/25 09:40 e-Cigarette/Vaping Use Never Used 01/26/25 09:40 Thrive Assessment: Date of Thrive Assessment Date Thrive assessed 11/27/24 01/26/25 09:40 Const Other: General: no acute distress and well developed Nutritional Appearance: well nourished Orientation/consciousness: patient oriented x3 HENMT Head: Yes normocephalic and Yes atraumatic Eyes General: appearance normal, both eyes and all related structures Pupils: Equal, round and reactive pupils present EOM: EOMs intact bilaterally Resp Effort & Inspection: normal respiratory effort Auscultation: clear to auscultation bilaterally Cardio Rate: regular rate Rhythm: regular rhythm Heart sounds: S1 normal heart sound present, S2 normal heart sound present, no gallops, no murmurs and no rubs GI Palpation (GI): No Abdominal aortic bruit present, Soft to palpation, nontender, No hepatosplenomegaly present and No Rebound tenderness present Auscultation: normal bowel sounds General: Yes no CVA tenderness Back/Spine/Pelvis Back: no CVA tenderness Cervical Spine: cervical ROM normal and No Cervical spine tenderness Thoracic/Lumbar Spine: thoraco-lumbar ROM normal, No pain with thoraco-lumbar ROM, No thoracic spinal tenderness and No lumbar spinal tenderness Extrem General: Yes normal to inspection, No edema and No calf tenderness Skin General: warm and dry. Normal skin color. Normal skin turgor Neuro General: patient oriented x3, gait normal and no focal neuro deficit Cranial nerves: Yes Equal, round and reactive pupils present Cognition (Neuro): normal cognition Gait exam (Neuro): Normal gait present Sensory Exam: No Sensory deficit (Neuro) Psych Appearance: grossly normal Affect: normal affect Attitude: cooperative Thought process: Normal thought process present Coding Level of Care Code Est Pt Level 3 (73190) Diagnoses Hypertension I10 Elevated LDL cholesterol level E78.00 Assessment & Plan Assessment & Plan (1) Hypertension: Code(s): I10 - Essential (primary) hypertension Category: Medical Plan: Blood pressure is 135/61, within goal of less than 140/90. Continue current treatment regimen. Low-sodium diet encouraged. Follow-up in 3 months or sooner with symptoms or concerns. Verbalized understanding and agreed with the plan. (2) Elevated LDL cholesterol level: Code(s): E78.00 - Pure hypercholesterolemia, unspecified Category: Medical Plan: Recent labs are unremarkable except for slightly elevated LDL, 111. Advised to limit foods high in saturated fat and avoid foods high in trans fat. Routine exercise encouraged. Will monitor lipid panel levels annually or as needed. Verbalized understanding and agreed with the plan.
[2025-01-26 09:47] VITALS: BP 135/61; PULSE 52; RESP 16; TEMP 36.4; O2SAT 100; BMI 23.5
--- OUTSIDE RECORDS SUMMARY | 2025-01-26 10:24 | XMS_ITS | Clinical Summary ---
Author Organization [facility] Address [address] [place] [address] Phone Care Team Providers Care Roll Tester Name Role Phone Americo Ayala MD Primary Care Provider [phone] Allergies No known active allergies Medications lisinopril [...] VACCINE (1 - 1-dose 75+ series) 2016 INFLUENZA VACCINE (#1) 2024 , 03/17/2019, 02/04/2018, Additional history exists COVID-19 VACCINE (3 - 2024- season) 2025 07/09/2020, 06/17/2020 Adult Td,Tdap Booster 07/17/2026 07/17/2016, 008 PNEUMOCOCCAL VACCINES (50+ years) Completed 10/19/2014, 11/29/2007 [...] file Insurance MEDICARE PART A & B [facility] MEDICARE PART A & B [place] [facility] [place] A & B HEALTH MEDICARE PART A & [place] [facility]ARE PART [facility] & [facility] [place] [id number] MEDICARE PART A & [facility] [place] [id number] Care Teams Roll Tester Relationship Specialty Start Date End Date Americo Ayala MD [address] [place], [place] [address] [place] [address] [email or web address] PCP - General 02/18/17 Additional Source Comments The information contained in this document represents components of the legal health record. It is not the complete legal health record.[facility]
== END 2025-01-26 10:23 | disposition home or self-care (01) ==
LOC: HO.HMCFM 09:29
PROVIDERS: PCP Nurse Practitioner Family; Visit Provider Nurse Practitioner Family
DX: I10 Essential (primary) hypertension (principal); E78.00 Pure hypercholesterolemia, unspecified

== ENCOUNTER → 2025-01-26 09:28 | Outpatient (BNVA) | payer MEDICARE, MEDICAID, SELFPAY | PROVIDERS: PCP Nurse Practitioner Family; Visit Provider Nurse Practitioner Family | DX: I10 Essential (primary) hypertension (principal); E78.00 Pure hypercholesterolemia, unspecified | CPT/HCPCS: 99212 ==

== ENCOUNTER 2025-04-17 08:48 | Outpatient (AMB) | payer MEDICARE, MEDICAID, SELFPAY ==
--- NOTE | 2025-04-17 08:49 | A.OFFPC_ITS ---
Vital Signs 04/17/25 08:56 04/17/25 09:10 Height 5 ft 4.7 in Weight 141 lb 4 oz BMI 23.7 BP 143/66 H 124/60 Blood Pressure Location Rt brachial Rt brachial Position Sitting Sitting Respiration 12 Pulse 50 56 Pulse Source Pulse Oximeter Auscultation Temp 96.4 F L Temp Source Temporal Artery Scan Pulse Oximetry (%) 100 Oxygen Delivery Method Room Air Intake Visit Reasons: 3 mos HTN Intake Note: 3 Months follow up on htn. Clothing Designer Required: Yes Clothing Designer Language: Croatian Clothing Designer Name: memo [id number] Information Interpreted: clinical only Manager Pacu: Not Required per policy Allergies No Known Allergies Allergy (Verified 04/17/25 09:04) Medication List - Last Reconciled 04/17/25 by Maira Almaraz CNP amlodipine 5 mg PO DAILY 30 days lisinopril 30 mg PO DAILY 30 days Tobacco use date assessed: 04/17/25 Fall risk assessment: No Falls in past year Last assessed Fall Risk: 04/17/25 Dental Screening Dental Screen Date: 04/17/25 Did you have a dental visit in the last 12 months?: Yes Did you have a dental problem in the last 6 months where you did not have access to dental care?: No Was dental information given to patient?: Patient has dentist HPI HPI Comments History of Present Illness Details 84-year-old Croatian speaking male present s for hypertension follow-up. He admits to taking his medications as prescribed without adverse reactions. He notes that he has been making healthy lifestyle changes. He offers no complaints and denies acute symptoms at this time. Interpretation by a professional Croatian dairy farm operator via audio. PFSH Family History Brother Alcohol abuse Other Substance abuse Social History (Updated 11/27/24 @ 09:46 by WILFREDO Maynard) Housing: House Patient Tobacco Use Status: Never used Tobacco e-Cigarette/Vaping Use: Never Used Second Hand Smoke Exposure: No service: No Current occupational status: retired Current occupational exposures/hazards: No Cognitive needs: No Hearing needs: No Vision needs: Yes Questionnaire Thrive Questionnaire Date Thrive assessed: 11/27/24 OLIMPIA-7 AMB Questionnaire OLIMPIA-7 Date OLIMPIA - 7 assessed: 11/27/24 Source: Developed by Drs. Bowen Montoya, Melanie Wiggins, Pelno Chapa and colleagues, with an educational felipa from [employer]. Review of Systems Const Details: Const Denies chills, Denies fatigue, Denies fever(s), Denies headache(s) and Denies weakness ENT Denies dizziness and Denies headache(s) Card Denies chest pain, Denies lightheadedness, Denies dyspnea and Denies other (Palpitations) Resp Denies cough, Denies dyspnea, Denies wheezing and Denies other ( shortness of breath) GI Denies abdominal pain, Denies melena, Denies hematochezia, Denies change in bowel habits, Denies dyspepsia and Denies nausea Denies hematuria and Denies dysuria Musc Denies abnormal gait, Denies myalgias, Denies arthralgias, Denies numbness and Denies tingling Skin/Breast Denies rash, Denies unusual bruising and Denies wounds Neuro Denies abnormal gait, Denies dizziness, Denies headache(s), Denies memory loss, Denies numbness, Denies Sensory deficit (Neuro), Denies tingling and Denies weakness Psych Denies anxiety, Denies depression, Denies memory loss Endo Denies cold intolerance, Denies fatigue, Denies heat intolerance, Denies polydipsia and Denies polyuria Aller/Immun Denies wheezing Physical exam (Primary Care) Vital Signs: Last Vital Signs Temp 96.4 F L 04/17/25 08:56 Pulse 50 04/17/25 08:56 Resp 12 04/17/25 08:56 BP 143/66 H 04/17/25 08:56 Pulse Ox 100 04/17/25 08:56 Oxygen Delivery Method Room Air 04/17/25 08:56 BMI result Body Mass Index 23.7 Tobacco/Smoking Status: Tobacco use Status Tobacco use date assessed 04/17/25 04/17/25 08:52 Patient Tobacco Use Status Never used Tobacco 04/17/25 08:52 e-Cigarette/Vaping Use Never Used 04/17/25 08:52 Thrive Assessment: Date of Thrive Assessment Date Thrive assessed 11/27/24 04/17/25 08:52 Const Other: General: no acute distress and well developed Nutritional Appearance: well nourished Orientation/consciousness: patient oriented x3 HENMT Head: Yes normocephalic and Yes atraumatic Eyes General: appearance normal, both eyes and all related structures Pupils: Equal, round and reactive pupils present EOM: EOMs intact bilaterally Resp Effort & Inspection: normal respiratory effort Auscultation: clear to auscultation bilaterally Cardio Rate: regular rate Rhythm: regular rhythm Heart sounds: S1 normal heart sound present, S2 normal heart sound present, no gallops, no murmurs and no rubs Extrem General: Yes normal to inspection, No edema and No calf tenderness Skin General: warm and dry. Normal skin color. Normal skin turgor Neuro General: patient oriented x4, gait normal and no focal neuro deficit Psych Appearance: grossly normal Affect: normal affect Attitude: cooperative Thought process: Normal thought process present Coding Level of Care Code Est Pt Level 3 (40578) Diagnoses Hypertension I10 Assessment & Plan Assessment & Plan (1) Hypertension: Code(s): I10 - Essential (primary) hypertension Category: Medical Plan: Resting blood pressure is 124/60, within goal of less than 140/90. Continue current treatment regimen. Routine exercise and low-sodium diet, including low-salt encouraged. Follow-up in 2-3 months for transfer of care with a new provider within the practice. Return sooner with symptoms or concerns. Verbalized understanding and agreed with the plan.
[2025-04-17 08:56] VITALS: BP 143/66; PULSE 50; RESP 12; TEMP 35.8; O2SAT 100; BMI 23.7
[2025-04-17 09:10] VITALS: BP 124/60; PULSE 56
--- OUTSIDE RECORDS SUMMARY | 2025-04-17 09:33 | XMS_ITS | Clinical Summary ---
Author Organization [facility] Address [address] [place] [id number] Phone Care Team Providers Care Hydroelectric Production Manager Name Role Phone Americo Ayala MD Primary Care Provider [phone] Allergies No known active allergies Medications lisinopril [...] file Insurance MEDICARE PART A & B [facility] MEDIC[facility] PART A & [place] [facility] [place] [facility] [place] [facility] MEDICARE PART A [place] [facility] [facility] [place] FELICE SUAREZ [id number] MEDICARE PART A & [facility] [place] [phone] Care Teams Hydroelectric Production Manager Relationship Specialty Start Date End Date Americo Ayala MD [address] [place], [place] [address] [place] [address] [email or web address] PCP - General 02/18/17 Additional Source Comments The information contained in this document represents components of the legal health record. It is not the complete legal health record.[facility]
== END 2025-04-17 09:15 | disposition home or self-care (01) ==
LOC: HO.HMCFM 08:48
PROVIDERS: PCP Nurse Practitioner Family; Visit Provider Nurse Practitioner Family
DX: I10 Essential (primary) hypertension (principal)

== ENCOUNTER → 2025-04-17 08:48 | Outpatient (BNVA) | payer MEDICARE, MEDICAID, SELFPAY | PROVIDERS: PCP Nurse Practitioner Family; Visit Provider Nurse Practitioner Family | DX: I10 Essential (primary) hypertension (principal); Z79.899 Other long term (current) drug therapy | CPT/HCPCS: 99212 ==